=== PATIENT | female | born 1990 | race Caucasian/White ===

== ENCOUNTER 2020-07-09 16:56 | Emergency (ER) | payer OTHER ==
[~2020-07-09 16:56] MED LIST: AUGMENTIN 500-500 MG PO; COLACE100 MG PO; FEOSOL325 MG PO; IRON325 M1 PO; NORCO 7.5-3251 EACH PO; PRENATAL VITAM1 EAC3 PO
[2020-07-09] MEDS ORDERED: CEPHALEXIN500 MG PO (19:33)
== END 2020-07-09 19:59 | disposition home or self-care (01) ==
LOC: ER1 16:56
DX: R22.31 Localized swelling, mass and lump, right upper limb (principal); M79.601 Pain in right arm; J45.909 Unspecified asthma, uncomplicated; F17.200 Nicotine dependence, unspecified, uncomplicated; Z88.1 Allergy status to other antibiotic agents
CPT/HCPCS: 99283

== ENCOUNTER → 2020-07-13 | Outpatient (CLI) | payer OTHER ==
[~2020-07-13] MED LIST changes: +CEPHALEXIN500 MG PO
== END ==
LOC: EXRD 15:29
DX: R22.31 Localized swelling, mass and lump, right upper limb (principal); I82.611 Acute embolism and thrombosis of superficial veins of right upper extremity
CPT/HCPCS: 93971